=== PATIENT | male | born 1970 ===

== ENCOUNTER → 2022-12-29 06:00 | Outpatient (CLI) | payer OTHER ==
[~2022-12-29 06:00] MED LIST: COZAAR100 MG PO; LASIX20 MG PO; RELAFEN PO; SIMVAST PO; SYNTH PO; TOPROL XL100 M1 PO; VERAPA PO; VITAMIN D310 MCG/1 M PO
== END | disposition home or self-care (01) ==
LOC: LAB 06:00 → ADM 08:45 → CIR.AMB 01-06 08:45 → EDSTATUS 01-06 08:45
PROVIDERS: ATTEND Orthopaedic Surgery Hand Surgery
DX: Z01.810 Encounter for preprocedural cardiovascular examination (principal); G56.02 Carpal tunnel syndrome, left upper limb; E11.9 Type 2 diabetes mellitus without complications; E78.00 Pure hypercholesterolemia, unspecified; E78.3 Hyperchylomicronemia; D65 Disseminated intravascular coagulation [defibrination syndrome]; N39.0 Urinary tract infection, site not specified; D66 Hereditary factor VIII deficiency; I10 Essential (primary) hypertension

== ENCOUNTER 2022-12-31 06:14 | Outpatient (CLI) | payer OTHER | END 2022-12-31 06:17 | disposition home or self-care (01) | LOC: LAB 06:14 | PROVIDERS: ATTEND Orthopaedic Surgery Hand Surgery | DX: Z20.822 Contact with and (suspected) exposure to COVID-19 (principal) ==